=== PATIENT | male | born 1945 | race Two or more races ===

== ENCOUNTER 2016-12-20 11:30 | Emergency (ER) | payer OTHER ==
--- NOTE | 2016-12-20 12:24 | ER Document Report ---
HPI - HPI Patient complains to provider of: insect bite Onset: Other - 2 days ago Onset/Duration: Persistent Quality of pain: Achy Severity: Moderate Pain Level: 3 Context: Patient presents emergency department with complaints of insect bite to his left wrist. He reports it happened 2 days in [facility]. Patient is traveling at this time with his . They are in [place] for a reunion. They will be returning home to [place] by January 04. Patient reports the insect bite happened to him once before, about a 1 month ago, he was treated with cephalexin and hydroxyzine. He reports the area itches. He denies other symptoms such as trouble breathing fever vomiting diarrhea. Patient is not sure what bit him. Associated Symptoms: None Exacerbated by: Denies Relieved by: Denies Similar symptoms previously: Yes Recently seen / treated by doctor: No - DERM Skin Color: Normal Past Medical History - General Information source: Patient - Social History Smoking Status: Unknown if Ever Smoked Cigarette use (# per day): No Frequency of alcohol use: None Drug Abuse: None Occupation: retired Lives with: Family Family History: None Patient has suicidal ideation: No Patient has homicidal ideation: No Endocrine Medical History: Reports: Hx Diabetes Mellitus Type 2 Renal/ Medical History: Denies: Hx Peritoneal Dialysis Past Surgical History: Reports: Hx Appendectomy Vertical Provider Document - CONSTITUTIONAL Agree With Documented VS: Yes Exam Limitations: No Limitations General Appearance: WD/WN, No Apparent Distress - INFECTION CONTROL TRAVEL OUTSIDE OF THE [place] IN LAST 30 DAYS: No - HEENT HEENT: Atraumatic, Normocephalic - NECK Neck: Normal Inspection, Supple - RESPIRATORY Respiratory: Breath Sounds Normal, No Respiratory Distress O2 Sat by Pulse Oximetry: 98 - CARDIOVASCULAR Cardiovascular: Regular Rate - GI/ABDOMEN Gastrointestinal: Abdomen Soft, Abdomen Non-Tender - BACK Back: Normal Inspection - MUSCULOSKELETAL/EXTREMETIES Musculoskeletal/Extremeties: MAEW, FROM, Tender - left lateral wrist with insect bite, swelling, erythema, good radial pulse, brisk cap refill - NEURO Level of Consciousness: Awake, Alert, Appropriate - DERM Integumentary: Warm, Dry Course - Re-evaluation Re-evalutation: 12/20/16 12:49 Area has erythema, no pustule, brisk cap refill, good radial pulse, will treat him with keflex and hydroxzine for itching. Patient instructed on the importance of monitoring the site for increased infection. He was also instructed on the importance of follow-up with his primary care provider upon returning to [place]. He verbalized understanding to all instructions. - Vital Signs Vital signs: Temp Pulse Resp BP Pulse Ox 98.4 F 60 19 137/82 H 98 12/20/16 11:38 12/20/16 11:38 12/20/16 11:38 12/20/16 11:38 12/20/16 11:38 Discharge - Discharge Clinical Impression: Elevated blood pressure reading Insect bite Qualifiers: Encounter type: initial encounter Qualified Code(s): W57.XXXA - Bitten or stung by nonvenomous insect and other nonvenomous arthropods, initial encounter Condition: Stable Disposition: HOME, SELF-CARE Instructions: Cephalexin ([facility]), Antihistamines ([facility]), Insect Bites ([facility]) Additional Instructions: *You have been treated for an insect bite *Take medication as prescribed *Monitor the site for signs of infection such as increasing pain, redness, swelling, warmth *Apply skin protection when going outdoors *Follow up with a primary care provider when returning to [place] *Return to ED for signs of infection, worsening condition, changes, needs Monitor your blood pressure. Your blood pressure was elevated today. This may be because you were anxious, in pain or because you need medication. It is important to follow up with your primary care provider for full evaluation. Prescriptions: Cephalexin Monohydrate [Keflex 250 Mg Capsule] 250 mg PO QID #20 capsule Hydroxyzine HCl 25 mg PO TID PRN #15 tablet PRN Reason: Itching Forms: Elevated Blood Pressure
[2016-12-20 12:40] VITALS: BP 126/72
== END 2016-12-20 12:35 | disposition home or self-care (01) ==
LOC: ER 11:30
DX: S60.862A Insect bite (nonvenomous) of left wrist, initial encounter (principal); W57.XXXA Bitten or stung by nonvenomous insect and other nonvenomous arthropods, initial encounter; R03.0 Elevated blood-pressure reading, without diagnosis of hypertension; E11.9 Type 2 diabetes mellitus without complications
CPT/HCPCS: 99281

== ENCOUNTER 2016-12-22 16:42 | Emergency (ER) | payer OTHER ==
[2016-12-22] MEDS ORDERED: LIDOCAINE 1% INJ-PF (10 MG/ML) 30 ML SDV INJ ONE (17:07)
[2016-12-22] MEDS ORDERED: CEFTRIAXONE INJ 1000 MG VIAL IM ONE (17:07)
[2016-12-22] MEDS ORDERED: KETOROLAC TROMETHAMINE 60 MG/2 ML SDV IM ONE (17:07)
[2016-12-22 18:05] LABS: ABSOLUTE EOSINOPHILS # (AUTO) 0.2 10^3/uL (0.0-0.6); ABSOLUTE LYMPHOCYTES (AUTO) 1.5 10^3/uL (0.5-4.7); ABSOLUTE MONOCYTES (AUTO) 0.6 10^3/uL (0.1-1.4); ABSOLUTE NEUT (AUTO) 5.1 10^3/uL (1.7-8.2); BASOPHILS % (AUTO) 0.4 % (0-2); EOSINOPHILS % (AUTO) 2.5 % (0-6); HEMATOCRIT 40.5 % (37.9-51.0); HEMOGLOBIN 14.2 g/dL (13.5-17.0); HGB HCT DIFFERENCE 2.1; LYMPHOCYTES % (AUTO) 20.1 % (13-45); MEAN CORPUSCULAR HEMOGLOBIN 30.9 pg (27.0-33.4); MEAN CORPUSCULAR VOLUME 88 fl (80-97); MONOCYTES % (AUTO) 8.2 % (3-13); SEGMENTED NEUTROPHILS % (AUTO) 68.8 % (42-78); WHITE BLOOD COUNT 7.4 10^3/uL (4.0-10.5)
--- NOTE | 2016-12-22 19:08 | ER Document Report ---
HPI - HPI Patient complains to provider of: left wrist pain Onset: Last week Onset/Duration: Persistent, Worse Quality of pain: Throbbing Severity: Severe Pain Level: 5 Context: Patient states he was seen Wednesday for possible insect bite to left wrist and was put on antibiotics. States pain and redness has gotten worse. Patient also states he has a history of gout. Associated Symptoms: None Exacerbated by: Movement Relieved by: Denies Similar symptoms previously: Yes Recently seen / treated by doctor: Yes - ROS ROS below otherwise negative: Yes Systems Reviewed and Negative: Yes All other systems reviewed and negative - CONSTITUTIONAL Constitutional: DENIES: Fever - EENT EENT: DENIES: Congestion - NEURO Neurology: DENIES: Headache - CARDIOVASCULAR Cardiovascular: DENIES: Chest pain - RESPIRATORY Respiratory: DENIES: Trouble Breathing - GASTROINTESTINAL Gastrointestinal: DENIES: Abdominal Pain - DERM Skin Color: Erythema - Left wrist Skin Problems: None Past Medical History - General Information source: Patient - Social History Smoking Status: Never Smoker Frequency of alcohol use: None Drug Abuse: None Lives with: Spouse/Significant other Family History: None Patient has suicidal ideation: No Patient has homicidal ideation: No - Past Medical History Cardiac Medical History: Reports: Hx Hypertension Endocrine Medical History: Reports: Hx Diabetes Mellitus Type 2 Past Surgical History: Reports: Hx Appendectomy, Hx Cholecystectomy, Hx Kidney ( Renal Surgery) - partial nephrectomy, Hx Orthopedic Surgery - Rt. Knee - Immunizations Hx Diphtheria, Pertussis, Tetanus Vaccination: Yes Vertical Provider Document - CONSTITUTIONAL Agree With Documented VS: Yes Exam Limitations: No Limitations General Appearance: WD/WN, Mild Distress - INFECTION CONTROL TRAVEL OUTSIDE OF THE [place] IN LAST 30 DAYS: No - HEENT HEENT: Atraumatic, Normocephalic - RESPIRATORY Respiratory: Breath Sounds Normal, No Respiratory Distress O2 Sat by Pulse Oximetry: 95 - CARDIOVASCULAR Cardiovascular: Regular Rate, Regular Rhythm - MUSCULOSKELETAL/EXTREMETIES Musculoskeletal/Extremeties: FROM - With discomfort voiced., Tender - Left wrist , No Edema - NEURO Level of Consciousness: Awake, Alert, Appropriate - DERM Integumentary: Warm, Dry, Rash - Erythema and mild warmth noted to the left wrist. Single red bump to lateral left wrist. Nonfluctuant. Course - Re-evaluation Re-evalutation: 12/22/16 19:04 Lab work and x-rays discussed with patient. - Vital Signs Vital signs: Temp Pulse Resp BP Pulse Ox 98.1 F 67 18 177/86 H 95 12/22/16 16:46 12/22/16 16:46 12/22/16 16:46 12/22/16 16:46 12/22/16 16:46 - Laboratory Result Diagrams: 12/22/16 17:50 Laboratory results interpreted by me: 12/22/16 17:50 Plt Count 143 L Procedures - Immobilization Left Wrist Time completed: 19:53 Pre-Proc Neuro Vasc Exam: Normal Immobilizer type: Peewee wrap Performed by: PCT Post-Proc Neuro Vasc Exam: Normal Alignment checked and good: Yes Discharge - Discharge Clinical Impression: Left wrist pain Condition: Good Disposition: HOME, SELF-CARE Additional Instructions: Take meds as prescribed. Keflex increased to 500 mg 4 times a day. Wear peewee wrap to left wrist as instructed Tylenol or Motrin as needed for pain, Percocet as needed Blood work and x-rays were normal today Follow-up with your primary care physician Wednesday for recheck if not better Return as needed Prescriptions: Cephalexin [Cephalexin 500 MG Capsule] 1 cap PO QID #20 capsule Oxycodone HCl/Acetaminophen [Percocet 5-325 mg Tablet] 1 - 2 tab PO ASDIR PRN # 15 tablet PRN Reason:
[2016-12-22 19:35] VITALS: BP 146/86
== END 2016-12-22 19:35 | disposition home or self-care (01) ==
LOC: ER 16:42
DX: M25.532 Pain in left wrist (principal); L53.9 Erythematous condition, unspecified; R22.32 Localized swelling, mass and lump, left upper limb; I10 Essential (primary) hypertension; E11.9 Type 2 diabetes mellitus without complications; Z87.39 Personal history of other diseases of the musculoskeletal system and connective tissue
CPT/HCPCS: 99284; 96372; 96374; 36415; 84550; 85025; 73110; J1885; J3490; J0696